=== PATIENT | female | born 1935 | race Caucasian/White ===

== ENCOUNTER → 2021-02-01 | Outpatient (CLI) | payer MEDICARE, OTHER ==
--- NOTE | 2021-02-01 14:55 | Diagnostic Imaging Report ---
INDICATION: Ankle pain, post fall. TECHNIQUE: Three views of the right ankle. CORRELATION STUDY: None. FINDINGS: Obliquely oriented fracture of the distal fibula is present. Fracture line extends into the lateral ankle mortise. There is very mild lateral and posterior displacement of the distal fracture fragment approximately the width of the cortex. Distal tibia is intact. Ankle mortise appears maintained. Questionable lucency over the talar dome for which a very small osteochondral defect would be difficult to exclude. Rather prominent soft tissue swelling is present. IMPRESSION: Minimally displaced obliquely oriented acute fracture of the distal right fibula. Associated soft tissue edema. Dictated by: Dictated on workstation # [id number]
== END ==
LOC: RAD 14:29
PROVIDERS: ATTEND Nurse Practitioner Family
DX: S90.01XA Contusion of right ankle, initial encounter (principal); W19.XXXA Unspecified fall, initial encounter
CPT/HCPCS: 73610

== ENCOUNTER → 2021-02-27 | Outpatient (CLI) | payer MEDICARE, OTHER ==
[~2021-02-27] MED LIST: CATHETER FLUSH 10 ML SYR IV PRN; HOLD METFORMIN - RECEIVED CONTRAST 20 ML VIAL IV SCH; IOHEXOL 350 MG/ML 100 ML (OMNIPAQUE 350) VIAL IV ONE; NS 100 ML (IVPB) BAG IV ONE
[2021-02-27 09:39] LABS: CREATININE SERUM 1.09 MG/DL (0.60-1.30)
--- NOTE | 2021-02-27 10:55 | Diagnostic Imaging Report ---
INDICATION: Aortic stent graft. Pre-contrast axial imaging through the abdomen and pelvis was performed. Next, postcontrast CT angiographic imaging of the abdomen and pelvis was performed. Multiplanar, 3-D and MIP reformations are also performed. No prior studies available for comparison. Lung bases are clear. There is a stent graft in the descending thoracic aorta. Descending thoracic aorta measures approximate 4.17 cm in AP diameter. The abdominal aorta appears to be normal caliber. No abdominal aortic aneurysm or dissection is identified. There are some calcified plaques throughout the aorta. There is a stent in the left renal artery. There also appears to be a stent in the left external iliac artery. No focal liver lesion is identified. Gallbladder surgically absent. There is no biliary duct dilatation. Pancreas and spleen are unremarkable. No adrenal mass is identified. Kidneys contain cortical low-attenuation lesion, largest lower pole left kidney measuring 3.4 cm and consistent with cysts. The small and large bowel loops are normal caliber. No free fluid or fluid collection is identified. Uterus is unremarkable. Bladder is decompressed. There are postoperative changes in the lower lumbar spine with grade 1 spondylolisthesis of L5 on S1. IMPRESSION: 1. Descending thoracic aortic stent graft, only partially included on this study. 2. No evidence of abdominal aortic aneurysm or dissection. 3. Bilateral renal cysts. 4. No acute feature detected. Dictated by: Dictated on workstation # [id number]
== END ==
LOC: RAD 10:15
PROVIDERS: ATTEND Internal Medicine Cardiovascular Disease
DX: I71.2 Thoracic aortic aneurysm, without rupture (principal); N28.1 Cyst of kidney, acquired; I10 Essential (primary) hypertension; I25.10 Atherosclerotic heart disease of native coronary artery without angina pectoris
CPT/HCPCS: 36415; 74174; 82565; 84520; 93306